=== PATIENT | female | born 1975 | race Caucasian/White ===

== ENCOUNTER 2021-06-26 14:07 | Observation (INO) | payer MEDICARE, OTHER ==
--- NOTE | 2021-06-26 14:34 | ERPHSYRPT ---
- History of Present Illness Time Seen by Provider: 06/26/21 14:30 Source: patient, EMS Exam Limitations: no limitations Patient Subjective Stated Complaint: Pt c/o of leg swelling with drainage Triage Nursing Assessment: Pt brought to the ER via EMS, tachycardic, oxygen was at 85% and was placed on 2L NC and is now at 96%, pt denies pain, bartolome lower ext are extremely swollen with drainage, pt walked to the cot for EMS and got out of breath which the pt states is not normal, pulses normal, denies any other issues at this time Physician History: This a 45-year-old morbidly obese white female who is diabetic and has hypertension as well as gastroesophageal reflux disease. She is also hypothyroid. Patient lives in [facility] but visits her mother here in [facility] for 2 weeks at a time and then goes back to her home in [facility]. Patient has known, chronic bilateral lower extremity lymphe jean paul and has noticed increased redness in the last few days. Her primary care doctor is Dr. Christopher Harris. Timing/Duration: day(s) (Last 3 days) Severity: moderate Associated Symptoms: denies symptoms, shortness of breath Allergies/Adverse Reactions: codeine Allergy (Verified 06/26/21 14:34) Sulfa (Sulfonamide Antibiotics) Allergy (Verified 06/26/21 14:34) Home Medications: Albuterol Sulfate [Proair Hfa] 1 inh PO UD 06/26/21 [History] Apixaban [Eliquis] 5 mg PO BID 06/26/21 [History] Cetirizine HCl [Zyrtec] 10 mg PO DAILY 06/26/21 [History] Cholecalciferol (Vitamin D3) [Vitamin D3] 5,000 unit PO DAILY 06/26/21 [History] Ferrous Sulfate 325 mg [Feosol 325 mg] 325 mg PO DAILY 06/26/21 [History] Ketoconazole Cream [Nizoral CREAM] 1 gm TP UD 06/26/21 [History] Levothyroxine Sodium 75 Mcg [Synthroid 75 Mcg] 75 mcg PO DAILY 06/26/21 [History] Lisinopril/Hydrochlorothiazide [Lisinopril-Hctz 20-25 mg Tab] 1 each PO DAILY 06/26/21 [History] Magnesium Oxide 400 mg PO TID 06/26/21 [History] Metformin HCl 850 mg [Glucophage 850 MG] 850 mg PO BID 06/26/21 [History] Metoprolol Tartrate [Lopressor] 200 mg PO DAILY 06/26/21 [History] Omeprazole 40 mg PO DAILY 06/26/21 [History] Travel Risk - International Travel Have you traveled outside of the country in past 3 weeks: No - Coronavirus Screening Are you exhibiting any of the following symptoms?: No Close contact with a COVID-19 positive Pt in past 14-21 Days: No - Vaccine Status Have you recieved a Covid-19 vaccination: No - Review of Systems Constitutional: No Symptoms Eyes: No Symptoms Ears, Nose, & Throat: No Symptoms Respiratory: Dyspnea Cardiac: No Symptoms Abdominal/Gastrointestinal: No Symptoms Genitourinary Symptoms: No Symptoms Musculoskeletal: No Injury Skin: Cellulitis, Other (Bilateral lower extremity lymphedema) Neurological: No Symptoms Psychological: No No Symptoms Endocrine: No Symptoms Hematologic/Lymphatic: No Symptoms Immunological/Allergic: No Symptoms All Other Systems: Reviewed and Negative - Past Medical History Pertinent Past Medical History: Yes Cardiac History: Arrhythmia, Hypertension, Other Respiratory History: COPD Endocrine Medical History: Diabetes Type II, Hypothyroidism Other Medical History: anemia, sleep apnea, gout, neuropathy - Past Surgical History Past Surgical History: Yes Gastrointestinal: Cholecystectomy Female Surgical History: Hysterectomy - Social History Smoking Status: Never smoker Exposure to second hand smoke: No Drug Use: none Patient Lives Alone: No - Female History Hx Now: No - Nursing Vital Signs Nursing Vital Signs: Initial Vital Signs Temperature 98.5 F 06/26/21 14:12 Pulse Rate 122 H 06/26/21 14:12 Blood Pressure 128/94 06/26/21 14:12 O2 Sat by Pulse Oximetry 95 06/26/21 14:12 Pain Scale Pain Intensity 0 - Physical Exam General Appearance: no apparent distress, alert, anxiety, obese Eye Exam: PERRL/EOMI, eyes nml inspection Ears, Nose, Throat Exam: normal ENT inspection, moist mucous membranes Neck Exam: normal inspection, non-tender, supple, full range of motion Respiratory Exam: normal breath sounds, lungs clear, airway intact, No chest tenderness, No respiratory distress Cardiovascular Exam: tachycardia Gastrointestinal/Abdomen Exam: soft, normal bowel sounds, No tenderness Pelvic Exam: not done Rectal Exam: not done Back Exam: normal inspection, normal range of motion, No CVA tenderness, No vertebral tenderness Extremity Exam: swelling (Cellulitis of bilateral lower extremities below the knee with significant lymphedema.) Neurologic Exam: alert, oriented x 3, cooperative, worm grower II-XII nml as tested, normal mood/affect, nml cerebellar function, nml station & gait, sensation nml Skin Exam: normal color, warm, dry Lymphatic Exam: other (Significant bilateral lower extremity lymphedema) SpO2 Interpretation: borderline oxygenation SpO2: 95 O2 Delivery: Room Air - Course Nursing assessment & vital signs reviewed: Yes Ordered Tests: Active Orders 24 hr Category Date Time Status CHEST 1 VIEW (PORTABLE) Stat Exams 06/26/21 16:57 Taken ABG [ARTERIAL BLOOD GASES] Stat Lab 06/26/21 16:59 Completed BLOOD CULTURE Stat Lab 06/26/21 15:20 Received CBC W DIFF Stat Lab 06/26/21 14:57 Completed CMP Stat Lab 06/26/21 14:57 Completed CULTURE,URINE Stat Lab 06/26/21 17:54 Received Lactic Acid Stat Lab 06/26/21 16:00 Completed POCT GLUCOSE Stat Lab 06/26/21 17:02 Completed POCT GLUCOSE Stat Lab 06/26/21 17:34 Completed T4 (Thyroxine) Stat Lab 06/26/21 Completed TSH [TSH, 3RD Generation] Stat Lab 06/26/21 17:09 Completed UA W/RFX UR CULTURE Stat Lab 06/26/21 17:54 Completed Medication Summary Discontinued Medications Generic Name Dose Route Start Last Admin Trade Name Freq PRN Reason Stop Dose Admin Dextrose 50 ml 06/26/21 17:06 06/26/21 17:14 D50w 50 Ml Abboject IV 06/26/21 17:07 50 ml STAT ONE Administration Dextrose Confirm 06/26/21 17:10 D50w 50 Ml Abboject Administered 06/26/21 17:11 Dose 50 ml IV .STK-MED ONE Ceftriaxone Sodium/Dextrose 1 g in 50 mls @ 100 mls/hr 06/26/21 16:29 06/26/21 17:28 Rocephin 1 Gm-D5w 50 Ml Bag IV 06/26/21 16:58 Infused STAT STA Infusion Ceftriaxone Sodium/Dextrose Confirm 06/26/21 16:37 Rocephin 1 Gm-D5w 50 Ml Bag Administered 06/26/21 16:38 Dose 1 g in 50 mls @ ud IV .STK-MED ONE Lab/Rad Data: Laboratory Result Diagrams 06/26/21 14:57 06/26/21 14:57 Laboratory Results 06/26/21 06/26/21 06/26/21 Range/Units Unknown 17:54 17:34 WBC (4.0-10.5) K/mm3 RBC (4.1-5.4) M/mm3 Hgb (12.0-16.0) gm/dl Hct (35-47) % MCV (78-100) fl MCH (26-32) pg MCHC (32-36) g/dl RDW (11.5-14.0) % Plt Count (150-450) K/mm3 MPV (7.5-11.0) fl Gran % (36.0-66.0) % Eos # (Auto) (0-0.5) Absolute Lymphs (auto) (1.0-4.6) Absolute Monos (auto) (0.0-1.3) Lymphocytes % (24.0-44.0) % Monocytes % (0.0-12.0) % Eosinophils % (0.00-5.0) % Basophils % (0.0-0.4) % Absolute Granulocytes (1.4-6.9) Basophils # (0-0.4) Puncture Site pCO2 (35-45) mmHg pO2 (75-100) mmHg Base Excess (-2.0-2.0) O2 Saturation (94-100) g/dF ABG pH (7.35-7.45) ABG HCO3 (22-28) ABG O2 Sat (Measured) (95-100) % Ilia Test A-a Gradient a/A Ratio Hemoglobin Carboxyhemoglobin (0.0-6.9) % THgb Methemoglobin (1.4-1.5) % Temperature C POC O2 Flow Rate % Sodium (137-145) mmol/L Potassium (3.5-5.1) mmol/L Chloride (98-107) mmol/L Carbon Dioxide (22-30) mmol/L Anion Gap (5-15) MEQ/L BUN (7-17) mg/dL Creatinine (0.52-1.04) mg/dL Estimated GFR ML/MIN Glucose (74-106) mg/dL POC Glucometer 121 H (74 to 106) mg/dL Lactic Acid (0.4-2.0) Calcium (8.4-10.2) mg/dL Total Bilirubin (0.2-1.3) mg/dL AST (14-36) U/L ALT (0-35) U/L Alkaline Phosphatase (38-126) U/L Serum Total Protein (6.3-8.2) g/dL Albumin (3.5-5.0) g/dL Thyroxine (T4) 6.23 (5.53-10.96) ug/dL TSH 3rd Generation (0.47-4.68) mIU/L Urine Color ARIC (YELLOW) Urine Appearance SLIGHTLY CLOUDY (CLEAR) Urine pH 5.0 (5-6) Ur Specific [place] 1.024 (1.005-1.025) Urine Protein 100 (Negative) Urine Ketones NEGATIVE (NEGATIVE) Urine Blood NEGATIVE (0-5) Donnie/ul Urine Nitrite POSITIVE (NEGATIVE) Urine Bilirubin NEGATIVE (NEGATIVE) Urine Urobilinogen 2 (0-1) mg/dL Ur Leukocyte Esterase NEGATIVE (NEGATIVE) Urine WBC (Auto) 3-5 (0-5) /HPF Urine RBC (Auto) 0-2 (0-2) /HPF U Hyaline Cast (Auto) 6-10 (0-2) /LPF U Epithel Cells (Auto) NONE (FEW) /HPF Urine Bacteria (Auto) RARE (NEGATIVE) /HPF Granular Casts (Auto) 2-5 (NEGATIVE) /LPF Urine Mucus (Auto) SLIGHT (NEGATIVE) /HPF Urine Culture Reflexed YES (NO) Urine Glucose NEGATIVE (NEGATIVE) mg/dL 06/26/21 06/26/21 06/26/21 Range/Units 17:09 17:02 16:59 WBC (4.0-10.5) K/mm3 RBC (4.1-5.4) M/mm3 Hgb (12.0-16.0) gm/dl Hct (35-47) % MCV (78-100) fl MCH (26-32) pg MCHC (32-36) g/dl RDW (11.5-14.0) % Plt Count (150-450) K/mm3 MPV (7.5-11.0) fl Gran % (36.0-66.0) % Eos # (Auto) (0-0.5) Absolute Lymphs (auto) (1.0-4.6) Absolute Monos (auto) (0.0-1.3) Lymphocytes % (24.0-44.0) % Monocytes % (0.0-12.0) % Eosinophils % (0.00-5.0) % Basophils % (0.0-0.4) % Absolute Granulocytes (1.4-6.9) Basophils # (0-0.4) Puncture Site LEFT RADIAL pCO2 61 H* (35-45) mmHg pO2 145 H* (75-100) mmHg Base Excess -1.0 (-2.0-2.0) O2 Saturation 97.6 (94-100) g/dF ABG pH 7.26 L (7.35-7.45) ABG HCO3 27.4 (22-28) ABG O2 Sat (Measured) 99.4 (95-100) % Ilia Test YES A-a Gradient -22 a/A Ratio 1.18 Hemoglobin 10.2 Carboxyhemoglobin 1.4 (0.0-6.9) % THgb Methemoglobin 0.5 L (1.4-1.5) % Temperature 37.0 C POC O2 Flow Rate 28 % Sodium (137-145) mmol/L Potassium 4.7 (3.5-5.1) mmol/L Chloride (98-107) mmol/L Carbon Dioxide (22-30) mmol/L Anion Gap (5-15) MEQ/L BUN (7-17) mg/dL Creatinine (0.52-1.04) mg/dL Estimated GFR ML/MIN Glucose (74-106) mg/dL POC Glucometer 93 (74 to 106) mg/dL Lactic Acid (0.4-2.0) Calcium (8.4-10.2) mg/dL Total Bilirubin (0.2-1.3) mg/dL AST (14-36) U/L ALT (0-35) U/L Alkaline Phosphatase (38-126) U/L Serum Total Protein (6.3-8.2) g/dL Albumin (3.5-5.0) g/dL Thyroxine (T4) (5.53-10.96) ug/dL TSH 3rd Generation 8.240 H (0.47-4.68) mIU/L Urine Color (YELLOW) Urine Appearance (CLEAR) Urine pH (5-6) Ur Specific [place] (1.005-1.025) Urine Protein (Negative) Urine Ketones (NEGATIVE) Urine Blood (0-5) Donnie/ul Urine Nitrite (NEGATIVE) Urine Bilirubin (NEGATIVE) Urine Urobilinogen (0-1) mg/dL Ur Leukocyte Esterase (NEGATIVE) Urine WBC (Auto) (0-5) /HPF Urine RBC (Auto) (0-2) /HPF U Hyaline Cast (Auto) (0-2) /LPF U Epithel Cells (Auto) (FEW) /HPF Urine Bacteria (Auto) (NEGATIVE) /HPF Granular Casts (Auto) (NEGATIVE) /LPF Urine Mucus (Auto) (NEGATIVE) /HPF Urine Culture Reflexed (NO) Urine Glucose (NEGATIVE) mg/dL 06/26/21 06/26/21 06/26/21 Range/Units 16:00 14:57 14:57 WBC 10.3 (4.0-10.5) K/mm3 RBC 3.22 L (4.1-5.4) M/mm3 Hgb 9.6 L (12.0-16.0) gm/dl Hct 33.1 L (35-47) % MCV 102.8 H (78-100) fl MCH 29.8 (26-32) pg MCHC 29.0 L (32-36) g/dl RDW 16.4 H (11.5-14.0) % Plt Count 266 (150-450) K/mm3 MPV 10.1 (7.5-11.0) fl Gran % 73.7 H (36.0-66.0) % Eos # (Auto) 1.04 H (0-0.5) Absolute Lymphs (auto) 1.31 (1.0-4.6) Absolute Monos (auto) 0.34 (0.0-1.3) Lymphocytes % 12.7 L (24.0-44.0) % Monocytes % 3.3 (0.0-12.0) % Eosinophils % 10.1 H (0.00-5.0) % Basophils % 0.2 (0.0-0.4) % Absolute Granulocytes 7.63 H (1.4-6.9) Basophils # 0.02 (0-0.4) Puncture Site pCO2 (35-45) mmHg pO2 (75-100) mmHg Base Excess (-2.0-2.0) O2 Saturation (94-100) g/dF ABG pH (7.35-7.45) ABG HCO3 (22-28) ABG O2 Sat (Measured) (95-100) % Ilia Test A-a Gradient a/A Ratio Hemoglobin Carboxyhemoglobin (0.0-6.9) % THgb Methemoglobin (1.4-1.5) % Temperature C POC O2 Flow Rate % Sodium 138 (137-145) mmol/L Potassium 4.8 (3.5-5.1) mmol/L Chloride 103 (98-107) mmol/L Carbon Dioxide 28 (22-30) mmol/L Anion Gap 11.9 (5-15) MEQ/L BUN 35 H (7-17) mg/dL Creatinine 1.31 H (0.52-1.04) mg/dL Estimated GFR 46.9 ML/MIN Glucose 107 H (74-106) mg/dL POC Glucometer (74 to 106) mg/dL Lactic Acid 1.3 (0.4-2.0) Calcium 8.4 (8.4-10.2) mg/dL Total Bilirubin 0.40 (0.2-1.3) mg/dL AST 25 (14-36) U/L ALT 25 (0-35) U/L Alkaline Phosphatase 152 H (38-126) U/L Serum Total Protein 8.6 H (6.3-8.2) g/dL Albumin 3.5 (3.5-5.0) g/dL Thyroxine (T4) (5.53-10.96) ug/dL TSH 3rd Generation (0.47-4.68) mIU/L Urine Color (YELLOW) Urine Appearance (CLEAR) Urine pH (5-6) Ur Specific [place] (1.005-1.025) Urine Protein (Negative) Urine Ketones (NEGATIVE) Urine Blood (0-5) Donnie/ul Urine Nitrite (NEGATIVE) Urine Bilirubin (NEGATIVE) Urine Urobilinogen (0-1) mg/dL Ur Leukocyte Esterase (NEGATIVE) Urine WBC (Auto) (0-5) /HPF Urine RBC (Auto) (0-2) /HPF U Hyaline Cast (Auto) (0-2) /LPF U Epithel Cells (Auto) (FEW) /HPF Urine Bacteria (Auto) (NEGATIVE) /HPF Granular Casts (Auto) (NEGATIVE) /LPF Urine Mucus (Auto) (NEGATIVE) /HPF Urine Culture Reflexed (NO) Urine Glucose (NEGATIVE) mg/dL - Progress Progress: improved, re-examined Progress Note: 06/26/21 17:10 Medical decision making: Patient denies chest pain. She is a little more somnolent than when I 1st saw her in the emergency room upon arrival. I will check blood sugar level, urinalysis and blood gas. Patient does have sleep apnea and does use oxygen for her sleep apnea at night. Her white count is normal she is anemic. I do not have old labs at this facility to compare. Her lactic acid level is also normal. 06/26/21 19:32 Patient is now more awake and alert. Chest x-ray shows mild bilateral interstitial alveolar opacities. 06/26/21 19:41 Medical decision making: I think this patient should be observed in the hospital at least overnight. She has a urinary tract infection and she has cellulitis present. I spoke with Dr. Clay and he agrees to place her in observation pending the Covid 19 test result. Patient will be followed from the respiratory standpoint by respiratory therapy and place her on a CPAP machine which she takes nightly. Discussed with : Keith Counseled pt/family regarding: lab results, diagnosis, rad results - Departure Departure Disposition: Observation Clinical Impression: UTI (urinary tract infection), Cellulitis Condition: Stable Critical Care Time: No Referrals: DOCTOR,NO FAMILY [Primary Care Provider] -
[2021-06-26 15:25] LABS: Absolute Neutrophil Ct (ANC) 7.63 (1.4-6.9); BASOPHIL % 0.2 % (0.0-0.4); Basophil (Absolute #) 0.02 (0-0.4); Eosinophil % 10.1 % (0.00-5.0); Eosinophil (Absolute #) 1.04 (0-0.5); Hematocrit 33.1 % (35-47); Hemoglobin 9.6 gm/dl (12.0-16.0); Lymphocyte (Absolute #) 1.31 (1.0-4.6); Lymphocytes % 12.7 % (24.0-44.0); Mean Cell Volume 102.8 fl (78-100); Mean Corpuscular Hemoglobin 29.8 pg (26-32); Mean Platelet Volume 10.1 fl (7.5-11.0); Monocyte (Absolute #) 0.34 (0.0-1.3); Monocytes % 3.3 % (0.0-12.0); Neutrophil % 73.7 % (36.0-66.0); Platelet Count 266 K/mm3 (150-450); Red Blood Count 3.22 M/mm3 (4.1-5.4); Red Cell Distribution Width 16.4 % (11.5-14.0); White Blood Count 10.3 K/mm3 (4.0-10.5)
[2021-06-26 15:37] LABS: ALBUMIN 3.5 g/dL (3.5-5.0); ANION GAP 11.9 MEQ/L (5-15); BILIRUBIN,TOTAL 0.4 mg/dL (0.2-1.3); Calcium 8.4 mg/dL (8.4-10.2); Creatinine 1 1.31 mg/dL (0.52-1.04); EST GLOMERULAR FILTRATION RATE 46.9 ML/MIN; Potassium 4.8 mmol/L (3.5-5.1); Total Protein 8.6 g/dL (6.3-8.2)
[2021-06-26] MEDS ORDERED: ROCEPHIN 1 Gm-D5w 50 ml Bag** 1 G/50 ML IVPB IV STA (16:29)
[2021-06-26] MEDS ORDERED: ROCEPHIN 1 Gm-D5w 50 ml Bag** 1 G/50 ML IVPB IV ONE (16:37)
[2021-06-26] MEDS ORDERED: D50W 50 ml Abboject IV ONE ×2 (17:06→17:10)
[2021-06-26 17:31] LABS: A-aADO2 -22; ABG HEMOGLOBIN 10.2; ABG POTASSIUM 4.7 (3.5-5.1); ARTERIAL BLD GAS O2 SATURATION 99.4 % (95-100); ARTERIAL BLOOD GAS FIO2 28 %; ARTERIAL BLOOD GAS PCO2 61 mmHg (35-45); ARTERIAL BLOOD GAS PO2 145 mmHg (75-100); ARTERIAL BLOOD GAS pH 7.26 (7.35-7.45); CARBOXYHEMOGLOBIN 1.4 % THgb (0.0-6.9); HCO3- 27.4 (22-28); HGB O2 SAT 97.6 g/dF (94-100); Methhemoglobin 0.5 % (1.4-1.5)
[2021-06-26 17:32] LABS: ABG SITE LEFT RADIAL; ALLEN TEST OK? YES
[2021-06-26 18:06] LABS: Appearance SLIGHTLY CLOUDY (CLEAR); Bacteria RARE /HPF (NEGATIVE); Bilirubin NEGATIVE (NEGATIVE); Blood NEGATIVE Ery/ul (0-5); Glucose NEGATIVE (NEGATIVE); Ketones NEGATIVE (NEGATIVE); Leukocyte Esterase NEGATIVE (NEGATIVE); Mucus SLIGHT /HPF (NEGATIVE); Nitrite POSITIVE (NEGATIVE); Protein,Urine Dip 100 (Negative); RBC 0-2 /HPF (0-2); Specific Gravity 1.024 (1.005-1.025); Urobilinogen 2 mg/dL (0-1)
[2021-06-26] MEDS ORDERED: Sodium Chloride 0.9% 1000 ML 1,000 ML IV SCH (23:30)
[2021-06-26] MEDS ORDERED: HUMULIN R SQ PRN (23:30)
[2021-06-26] MEDS ORDERED: Zofran 4 MG/2 ML VIAL IV PRN (23:30)
[2021-06-27] MEDS ORDERED: Lasix 20 MG/2 ML IV ONE (08:38)
--- NOTE | 2021-06-27 08:51 | XRAY ---
Indication: Hypoxia. Comparison: None Portable chest underinflated accentuating cardiac silhouette. Diffuse bilateral hazy groundglass airspace disease without consolidation/large effusion. Incidental multiple bilateral tiny round radiopacities felt to be external. Bony thorax intact.
[2021-06-27] MEDS ORDERED: Nizoral CREAM TP SCH (09:00)
[2021-06-27] MEDS ORDERED: VENTOLIN COMMON CANISTER IH SCH (09:15)
[2021-06-27 09:46] LABS: BASOPHIL % 0.2 % (0.0-0.4); Basophil (Absolute #) 0.02 (0-0.4); Eosinophil % 10.5 % (0.00-5.0); Eosinophil (Absolute #) 0.94 (0-0.5); Hematocrit 32.7 % (35-47); Hemoglobin 9.3 gm/dl (12.0-16.0); Lymphocyte (Absolute #) 1.55 (1.0-4.6); Lymphocytes % 17.3 % (24.0-44.0); Mean Cell Volume 104.5 fl (78-100); Mean Corpuscular Hemoglobin 29.7 pg (26-32); Mean Corpuscular Hgb Concent. 28.4 g/dl (32-36); Mean Platelet Volume 9.8 fl (7.5-11.0); Monocyte (Absolute #) 0.25 (0.0-1.3); Monocytes % 2.8 % (0.0-12.0); Neutrophil % 69.2 % (36.0-66.0); Platelet Count 242 K/mm3 (150-450); Red Blood Count 3.13 M/mm3 (4.1-5.4); Red Cell Distribution Width 16.6 % (11.5-14.0)
[2021-06-27] MEDS ORDERED: MAGNESIUM OXIDE 400 MG PO SCH (10:00)
[2021-06-27] MEDS ORDERED: NON-FORMULARY ITEM (Omeprazole [Omeprazole] 40 MG) PO SCH (10:00)
[2021-06-27] MEDS ORDERED: METOPROLOL TARTRATE 200 MG PO SCH (10:00)
[2021-06-27] MEDS ORDERED: NON-FORMULARY ITEM (Lisinopril/Hydrochlorothiazide [Lisinopril-Hctz 20-25 Mg Tab] 1 EACH) PO SCH (10:00)
[2021-06-27] MEDS ORDERED: NON-FORMULARY ITEM (Cetirizine Hcl [Zyrtec] 10 MG) PO SCH (10:00)
[2021-06-27] MEDS ORDERED: NON-FORMULARY ITEM (Cholecalciferol (Vitamin D3) [Vitamin D3] 5,000 UNIT) PO SCH (10:00)
[2021-06-27] MEDS ORDERED: NON-FORMULARY ITEM (Apixaban [Eliquis] 5 MG) PO SCH (10:00)
[2021-06-27 10:12] LABS: ALBUMIN 3.3 g/dL (3.5-5.0); ANION GAP 11.7 MEQ/L (5-15); BILIRUBIN,TOTAL 0.5 mg/dL (0.2-1.3); Calcium 8.4 mg/dL (8.4-10.2); Creatinine 1 1.33 mg/dL (0.52-1.04); EST GLOMERULAR FILTRATION RATE 46.1 ML/MIN; Potassium 4.7 mmol/L (3.5-5.1); Total Protein 8.2 g/dL (6.3-8.2)
[2021-06-27] MEDS: SYNTHROID 75 MCG PO SCH (11:24)
[2021-06-27] MEDS: MAG-OX 400 PO SCH ×3 (11:24→22:04)
[2021-06-27] MEDS: CLARITIN 10 MG PO SCH (11:24)
[2021-06-27] MEDS: ELIQUIS 2.5 MG TABLET PO SCH ×2 (11:24→22:04)
[2021-06-27] MEDS: VITAMIN D PO SCH (11:24)
[2021-06-27] MEDS: FEOSOL 325 MG PO SCH (11:24)
[2021-06-27] MEDS: MOTRIN 200 MG PO SCH ×2 (11:25→22:04)
[2021-06-27] MEDS: Zestril 20 MG PO SCH (11:25)
[2021-06-27] MEDS: hydroDIURIL 25 MG PO SCH (11:25)
[2021-06-27] MEDS: Protonix 40MG Tablet PO SCH (11:25)
[2021-06-27] MEDS: Glucophage 850 MG PO SCH ×2 (11:25→18:04)
[2021-06-27] MEDS: Lopressor 50 MG PO SCH (11:26)
[2021-06-27] MEDS: Levofloxacin 500MG/100ML D5W 500 MG/100 ML BAG IV SCH (11:34)
--- NOTE | 2021-06-27 12:04 | HP ---
CHIEF COMPLAINT: Leg swelling and drainage. HISTORY OF PRESENT ILLNESS: The patient is a 45 year-old morbidly obese, white female diabetic, hypertensive, gastroesophageal reflux disease. She reports that she has been having problems with chronic lymphedema. Currently she is only on hydrochlorothiazide for her edema. She does have a swim instructor who has seen her and has her on Eliquis to prevent pulmonary embolism or blood clots in the heart. She has never had either of these but just wants this as preventative treatment. The patient was found to be hypoxic upon getting up out of the chair to get to bed. Her O2 saturations dropped to 85% and her CO2 level was at 60. The patient reports that she does have a previous history of asthma and chronic obstructive pulmonary disease. Her primary care doctor is in [place], [place] as is her swim instructor. She is up here visiting with her mother which she stays for up to two weeks at a time and presented to our emergency room with the above problems. PHYSICAL EXAMINATION: The patient's vital signs showed her temperature to be 98.5F, pulse 122, blood pressure 128/94. O2 saturation was 95% after oxygen. HEENT: Normocephalic, atraumatic. Pupils equal round reactive to light. Extraocular movements intact. Oropharynx is pink and moist. NECK: Supple without lymphadenopathy, thyromegaly or JVD. CHEST: Essentially clear. HEART: Appears to be regular rate and rhythm. ABDOMEN: Quite large and difficult to palpate any masses. EXTREMITIES: Very large as well and there is some seepage and some redness over the lower extremities. LAB DATA AND TESTS: The patient had laboratory studies performed that showed urine to have positive nitrite with only 3-5 white blood cells per high power field. She has been on Levaquin 750 mg daily for her chronic infections to lower extremities with cellulitis. The patient's TSH was at 8.24. T4 was 6.23 in the normal range. The pH on admission showed 7.26, pCO2 61, pO2 145 on supplemental oxygen. Lactic acid 1.3. Hemoglobin was anemic at 9.6. The white count was normal at 10.3, PLT count 266,000. Sugar 107, BUN 35, creatinine 1.31. Electrolytes were normal. Liver enzymes were normal. She was COVID tested negative. ASSESSMENT: The patient has been admitted basically for the hypoxia issues. She has been placed on oxygen. We will check her ProBNP level and give her a trial of Lasix IV and ambulate her afterwards to see if her oxygen saturations will remain above 90% on room air. If not, we will obtain home oxygen for her. She is already on Levaquin for the chronic lymphedema and cellulitis. We will check a urine culture to see if she needs a different antibiotic. She was given Rocephin in our emergency room initially. We will have the girls in physical therapy look at the patient's lower extremities and help us with any wound care management that they can provide for her.
[2021-06-28] MEDS: Glucophage 850 MG PO SCH ×2 (08:19→17:42)
[2021-06-28] MEDS: Levofloxacin 500MG/100ML D5W 500 MG/100 ML BAG IV SCH (12:09)
[2021-06-28] MEDS: MAG-OX 400 PO SCH ×3 (12:15→22:27)
[2021-06-28] MEDS: SYNTHROID 75 MCG PO SCH (12:15)
[2021-06-28] MEDS: VITAMIN D PO SCH (12:15)
[2021-06-28] MEDS: CLARITIN 10 MG PO SCH (12:15)
[2021-06-28] MEDS: ELIQUIS 2.5 MG TABLET PO SCH ×2 (12:16→22:26)
[2021-06-28] MEDS: Protonix 40MG Tablet PO SCH (12:16)
[2021-06-28] MEDS: MOTRIN 200 MG PO SCH ×2 (12:16→22:24)
[2021-06-28] MEDS: FEOSOL 325 MG PO SCH (12:16)
[2021-06-28] MEDS: Zestril 20 MG PO SCH (12:22)
[2021-06-28] MEDS: hydroDIURIL 25 MG PO SCH (12:22)
[2021-06-28] MEDS: Lopressor 50 MG PO SCH (14:08)
[2021-06-29 06:40] LABS: Hematocrit 32.3 % (35-47); Hemoglobin 9.1 gm/dl (12.0-16.0); Mean Cell Volume 103.5 fl (78-100); Mean Corpuscular Hemoglobin 29.2 pg (26-32); Mean Corpuscular Hgb Concent. 28.2 g/dl (32-36); Mean Platelet Volume 10.1 fl (7.5-11.0); Platelet Count 224 K/mm3 (150-450); Red Blood Count 3.12 M/mm3 (4.1-5.4); Red Cell Distribution Width 16.3 % (11.5-14.0); White Blood Count 8.3 K/mm3 (4.0-10.5)
[2021-06-29 06:56] LABS: ANION GAP 11.1 MEQ/L (5-15); Calcium 8.3 mg/dL (8.4-10.2); Creatinine 1 1.1 mg/dL (0.52-1.04); EST GLOMERULAR FILTRATION RATE 57.3 ML/MIN; Potassium 4.5 mmol/L (3.5-5.1)
[2021-06-29 07:45] LABS: Slide Review YES
[2021-06-29] MEDS: TYLENOL 325 MG PO PRN ×2 (08:16→15:05)
[2021-06-29] MEDS: MAG-OX 400 PO SCH ×3 (08:17→22:50)
[2021-06-29] MEDS: VITAMIN D PO SCH (08:17)
[2021-06-29] MEDS: Levofloxacin 500MG/100ML D5W 500 MG/100 ML BAG IV SCH (08:17)
[2021-06-29] MEDS: FEOSOL 325 MG PO SCH (08:17)
[2021-06-29] MEDS: Protonix 40MG Tablet PO SCH (08:18)
[2021-06-29] MEDS: MOTRIN 200 MG PO SCH ×2 (08:18→22:49)
[2021-06-29] MEDS: Glucophage 850 MG PO SCH ×2 (08:18→19:39)
[2021-06-29] MEDS: ELIQUIS 2.5 MG TABLET PO SCH ×2 (08:18→22:50)
[2021-06-29] MEDS: SYNTHROID 75 MCG PO SCH (08:18)
[2021-06-29] MEDS: hydroDIURIL 25 MG PO SCH (08:18)
[2021-06-29] MEDS: CLARITIN 10 MG PO SCH (08:18)
[2021-06-29] MEDS: Zestril 20 MG PO SCH (08:18)
[2021-06-29] MEDS: Lopressor 50 MG PO SCH (10:53)
[2021-06-29] MEDS ORDERED: NYSTOP POWDER 15 GM TP PRN (11:35)
[2021-06-29] MEDS ORDERED: NYSTOP POWDER 15 GM TP SCH (12:00)
[2021-06-30 06:30] LABS: Hematocrit 32.3 % (35-47); Hemoglobin 9.2 gm/dl (12.0-16.0); Mean Cell Volume 102.2 fl (78-100); Mean Corpuscular Hemoglobin 29.1 pg (26-32); Mean Corpuscular Hgb Concent. 28.5 g/dl (32-36); Mean Platelet Volume 10.4 fl (7.5-11.0); Platelet Count 228 K/mm3 (150-450); Red Blood Count 3.16 M/mm3 (4.1-5.4); Red Cell Distribution Width 16.4 % (11.5-14.0); White Blood Count 8.5 K/mm3 (4.0-10.5)
[2021-06-30 06:53] LABS: ANION GAP 9.8 MEQ/L (5-15); Calcium 8.4 mg/dL (8.4-10.2); Creatinine 1 1.23 mg/dL (0.52-1.04); EST GLOMERULAR FILTRATION RATE 50.4 ML/MIN; Potassium 4.4 mmol/L (3.5-5.1)
[2021-06-30 07:12] LABS: Slide Review YES
[2021-06-30] MEDS: VITAMIN D PO SCH (10:33)
[2021-06-30] MEDS: MOTRIN 200 MG PO SCH ×2 (10:33→23:05)
[2021-06-30] MEDS: Lopressor 50 MG PO SCH (10:33)
[2021-06-30] MEDS: CLARITIN 10 MG PO SCH (10:34)
[2021-06-30] MEDS: Glucophage 850 MG PO SCH ×2 (10:34→17:18)
[2021-06-30] MEDS: Protonix 40MG Tablet PO SCH (10:34)
[2021-06-30] MEDS: Zestril 20 MG PO SCH (10:34)
[2021-06-30] MEDS: FEOSOL 325 MG PO SCH (10:34)
[2021-06-30] MEDS: ELIQUIS 2.5 MG TABLET PO SCH ×2 (10:34→23:06)
[2021-06-30] MEDS: SYNTHROID 75 MCG PO SCH (10:34)
[2021-06-30] MEDS: hydroDIURIL 25 MG PO SCH (10:34)
[2021-06-30] MEDS: MAG-OX 400 PO SCH ×3 (10:35→23:05)
[2021-06-30] MEDS: Levofloxacin 500MG/100ML D5W 500 MG/100 ML BAG IV SCH (10:37)
[2021-07-01 03:54] VITALS: O2SAT 98
[2021-07-01 08:42] VITALS: BP 91/50; PULSE 109
[2021-07-01] MEDS: VITAMIN D PO SCH (09:32)
[2021-07-01] MEDS: hydroDIURIL 25 MG PO SCH (09:32)
[2021-07-01] MEDS: Protonix 40MG Tablet PO SCH (09:32)
[2021-07-01] MEDS: SYNTHROID 75 MCG PO SCH (09:32)
[2021-07-01] MEDS: MOTRIN 200 MG PO SCH (09:32)
[2021-07-01] MEDS: FEOSOL 325 MG PO SCH (09:32)
[2021-07-01] MEDS: Glucophage 850 MG PO SCH (09:32)
[2021-07-01] MEDS: MAG-OX 400 PO SCH (09:33)
[2021-07-01] MEDS: CLARITIN 10 MG PO SCH (09:33)
[2021-07-01] MEDS: Zestril 20 MG PO SCH (09:33)
[2021-07-01] MEDS: ELIQUIS 2.5 MG TABLET PO SCH (09:33)
[2021-07-01] MEDS: Levofloxacin 500MG/100ML D5W 500 MG/100 ML BAG IV SCH (09:47)
[2021-07-01] MEDS: Lopressor 50 MG PO SCH (09:47)
--- NOTE | 2021-07-02 12:24 | DS ---
DISCHARGE DIAGNOSES: 1) MORBID OBESITY. 2) CELLULITIS. 3) HYPOXIA. 4) CONGESTIVE HEART FAILURE. HISTORY: The patient is a 45-year-old white female who presented to our emergency room with complaints of having leg swelling. The patient was found to have increasing shortness of breath in the emergency room. Her O2 saturations dropped to 85% with a pCO2 of 60. The patient had evaluation done with ProBNP which was above 3,000. The patient was also noted to be visiting here with her mother and she has been here for two weeks and then she goes back to her home with her for two weeks in [place] and has a medical case manager and primary care provider there. This is our first evaluation of this patient otherwise. HOSPITAL COURSE: The patient was admitted to the medicine daily where she received IV Lasix. She had a Sacl[place] catheter placed due to her inability to get up and walk very well. The patient was noted to be over 500 pounds on our bed scale. We never did get an accurate weight beyond that. The patient did not respond much to the IV Lasix but otherwise her saturations did improve. The patient was not very mobile. We did physical therapy evaluation. It took up to five people to get the patient to move initially. The patient did have evaluation by physical therapy and we offered her rehab. She has had this previously in a facility two years ago and she is now refusing to go back for rehab. The patient was able to sit up on the side of the bed and ambulate a little bit on 06/30/2021. The patient was ready to be discharged at that time but reported that her is the only one that has the van to get her around and he works from 0600 to 2000 hours and was in bed and would not come get her for her discharge on 06/30/2021. We discussed with the patient she had some biopsies obtained from skin swabs to the lower extremity edema and cellulitis area and grew three organisms all of which were sensitive to Levaquin which she had been on previous to her hospitalization and we continued IV during her hospitalization. The patient maintained normal vital signs throughout her stay. The laboratory studies otherwise revealed her to be negative for COVID. Her metabolic panel on admission showed a glucose of 107, BUN 35, creatinine 1.31. Liver enzymes were normal. Her white count was 10,300. Hemoglobin 9.3 and PLT count 266,000. Her arterial blood gas on admission showed pH 7.26, pCO2 61 and pO2 145 with supplemental oxygen. Her T4 was noted to be 6.23. Her TSH was somewhat elevated at 8.240. UA was essentially normal. As noted previously, her ProBNP was 3040. X-ray of the chest showed diffuse bilateral hazy, ground glass appearance without consolidation or effusion. The patient is at this time felt to be ready for discharge home again or more appropriately to rehab but the patient would not go to rehab. We did not require further inpatient hospital care stay at this time. Therefore, the patient will be discharged back home to follow up with her medical case manager and primary care provider in [place], [place].
== END 2021-07-01 14:34 | disposition home health service (06) ==
LOC: ED 14:07 → MED SURG 22:23
PROVIDERS: ADMIT Family Medicine; ATTEND Family Medicine
DX: I11.0 Hypertensive heart disease with heart failure (principal); I50.9 Heart failure, unspecified; R09.02 Hypoxemia; E66.01 Morbid (severe) obesity due to excess calories; L03.116 Cellulitis of left lower limb; L03.115 Cellulitis of right lower limb; E11.9 Type 2 diabetes mellitus without complications; M79.89 Other specified soft tissue disorders; K21.9 Gastro-esophageal reflux disease without esophagitis; E03.9 Hypothyroidism, unspecified; Z79.899 Other long term (current) drug therapy; Z79.01 Long term (current) use of anticoagulants; J44.9 Chronic obstructive pulmonary disease, unspecified; Z20.822 Contact with and (suspected) exposure to COVID-19
CPT/HCPCS: 36415; 36600; 51702; 71045; 80048; 80053; 81001; 82375; 82803; 82947; 83036; 83605; 83880; 84436; 84443; 85025; 85027; 87040; 87070; 87077; 87086; 87186; 94660; 94760; 96365; 96374; 97161; 97530; 99285; G0378; U0003; J0696; J1940; J1956; A9270-GY